=== PATIENT | male | born 1960 | race Caucasian/White ===

== ENCOUNTER 2021-01-14 13:23 | Outpatient (REF) | payer BC, SELFPAY | END 2021-01-14 13:24 | disposition home or self-care (01) | LOC: HO.MANLNP 13:23 | PROVIDERS: PCP Internal Medicine; Visit Provider Physician Assistant | DX: R30.9 Painful micturition, unspecified (principal) | CPT/HCPCS: 87086 ==

== ENCOUNTER 2023-05-05 13:55 | Outpatient (REF) | payer MEDICARE, SELFPAY | END 2023-05-05 13:56 | disposition home or self-care (01) | LOC: HO.MANLDS 13:55 | PROVIDERS: Visit Provider Internal Medicine | DX: R73.01 Impaired fasting glucose (principal) | CPT/HCPCS: 36415; 83036 ==

== ENCOUNTER 2025-03-14 12:04 | Outpatient (REF) | payer MEDICARE, SELFPAY ==
--- OUTSIDE RECORDS SUMMARY | 2025-03-14 12:46 | XMS_ITS | Encounter Summary ---
Author Organization [facility], Address [address] [place] [address] Phone Care Team Providers Care Assembly Room Supervisor Name Role Phone Surinder Cheung DO Primary Care Provider [phone] Encounter Details Date Type Department Care Team (Late st Contact Info) Description 04/28/2023 Documentation Only [facility] [address] [place] [address] Salvador Yung MD [address] [place] [address] 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 [address] documented as of this encounter Visit Diagnoses Not on filedocumented in this encounter Care Teams Assembly Room Supervisor Relationship Specialty Start Date End Date Surinder Cheung DO [address] [facility] [place] [address] PCP - General Internal Medicine 09/08/22 documented as of this encounter
--- OUTSIDE RECORDS SUMMARY | 2025-03-14 12:46 | XMS_ITS | Encounter Summary ---
Author Organization [facility], Address [address] [place] [address] Phone Care Team Providers Care Hall Clerk Name Role Phone Surinder Cheung DO Primary Care Provider [phone] Encounter Details Date Type Department Care Team (Late st Contact Info) Description 04/28/2023 Documentation Only [facility] [address] [place] [address] Salvador Yung MD [address] [place] [address] 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 [address] documented as of this encounter Visit Diagnoses Not on filedocumented in this encounter Care Teams Hall Clerk Relationship Specialty Start Date End Date Surinder Cheung DO [address] [facility] [place] [address] PCP - General Internal Medicine 09/08/22 documented as of this encounter
--- OUTSIDE RECORDS SUMMARY | 2025-03-14 12:46 | XMS_ITS | Data Portability ---
Author Organization [facility] Address [address] [place] [address] Assessment Encounter Date Assessment Date Assessment LastModified by Organization Details LastModified Time 09/20/2023 09/20/2023 [id number] [place] [id number] (CARDIAC TECHNICIAN) : MDM LOW MUST MEET 2 OF 3 ELEMENTS: PROBLEMS, DATA OR RISK ELEMENT 1: PROBLEMS ADDRESSED (LOW): 2 OR MORE SELF-LIMITED OR MINOR PROBLEMS OR 1 STABLE CHRONIC ILLNESS OR 1 ACUTE UNCOMPLICATED ILLNESS OR INJURY ELEMENT 2: DATA TO BE REVISED AND ANALYZED (LOW) MUST MEET 1 OF 2 CATEGORIES: CATEGORY 1. REVIEW OF PRIOR EXTERNAL NOTES/RESULTS, ORDERING OF TEST(S) CATEGORY 2. ASSESSMENT REQUIRING INDEPENDENT HISTORIAN(S) INCLUDE WHO THE HISTORIAN IS AND RELATION TO PT AND WHY PT IS UNABLE TO GIVE COMPLETE HISTORY ELEMENT 3: RISK (LOW) RISK OF COMPLICATIONS AND/OR MORBIDITY OR MORTALITY OF PATIENT MANAGEMENT PROVIDER MUST THOROUGHLY DOCUMENT ALL OF THE ELEMENTS COVERED Not available 09/20/2023 14:26:10 03/22/2024 03/22/2024 [id number] [place] [id number] (CARDIAC TECHNICIAN) MDM MODERATE MUST MEET 2 OUT OF 3 ELEMENTS: PROBLEMS, DATA OR RISK ELEMENT 1: PROBLEMS ADDRESSED 1 OR MORE CHRONIC ILLNESS WITH EXACERBATION OR 2 OR MORE STABLE CHRONIC ILLNESSES OR 1 UNDIAGNOSED NEW PROBLEM OR 1 ACUTE ILLNESS W/SYMPTOMS OR 1 ACUTE COMPLICATED INJURY ELEMENT 2: DATA MUST MEET 1 OF 3 CATEGORIES CATEGORY 1: REVIEW OF PRIOR EXTERNAL NOTES, REVIEW OF RESULTS, ORDERING OF EACH TEST, ASSESSMENT REQUIRING INDEPENDENT HISTORIAN OR CATEGORY 2: INDEPENDENT INTERPRETATION OF TESTS BY ANOTHER PHYSICIAN OR SPECIALIST OR CATEGORY 3: DISCUSSION OF MGT OR TEST INTERPRETATION W/EXTERNAL PHYSICIAN OR SPECIALIST ELEMENT 3: RISK RISK OF COMPLICATIONS AND/OR MORBIDITY OR MORTALITY OF PATIENT MANAGEMENT PROVIDER MUST THOROUGHLY DOCUMENT EACH ELEMENT THAT IS COVERED Not available 03/22/2024 12:23:58 09/20/2024 09/20/2024 [id number] [place] [id number] (CARDIAC TECHNICIAN) MDM HIGH MUST MEET 2 OUT OF 3 ELEMENTS: PROBLEMS, DATA OR RISK ELEMENT 1: PROBLEMS 1 OR MORE CHRONIC ILLNESS W/SEVERE EXACERBATION, PROGRESSION MAY REQUIRE HOSPITAL LEVEL CARE OR 1 ACUTE OR CHRONIC ILLNESS OR INJURY THAT POSES A THREAT TO LIFE OR BODILY FUNCTION ELEMENT 2: DATA: MUST MEET 2 OF 3 CATEGORIES CATEGORY 1 REVIEW OF PRIOR EXTERNAL NOTES REVIEW OF THE RESULTS ORDERING OF EACH TEST ASSESSMENT REQUIRING INDEPENDENT HISTORIAN(S) CATEGORY 2: INDEPENDENT INTERPRETATION OF TESTS BY ANOTHER PROVIDER/SPECIALI ST CATEGORY 3: DISCUSSION OF MGT OR TEST INTERPRETATION W/EXTERNAL PHYSICIAN/SPECIAL IST ELEMENT 3: RISK HIGH RISK OF MORBIDITY FROM ADDITIONAL DIAGNOSTIC TESTING OR TREATMENT PROVIDER MUST THOROUGHLY DOCUMENT EACH ELEMENT THAT IS COVERED PROVIDER MUST THOROUGHLY DOCUMENT EACH ELEMENT THAT IS COVERED Not available 09/20/2024 11:33:06 03/14/2025 03/14/2025 [id number] [place] [id number] (CARDIAC TECHNICIAN) MDM MODERATE MUST MEET 2 OUT OF 3 ELEMENTS: PROBLEMS, DATA OR RISK ELEMENT 1: PROBLEMS ADDRESSED 1 OR MORE CHRONIC ILLNESS WITH EXACERBATION OR 2 OR MORE STABLE CHRONIC ILLNESSES OR 1 UNDIAGNOSED NEW PROBLEM OR 1 ACUTE ILLNESS W/SYMPTOMS OR 1 ACUTE COMPLICATED INJURY ELEMENT 2: DATA MUST MEET 1 OF 3 CATEGORIES CATEGORY 1: REVIEW OF PRIOR EXTERNAL NOTES, REVIEW OF RESULTS, ORDERING OF EACH TEST, ASSESSMENT REQUIRING INDEPENDENT HISTORIAN OR CATEGORY 2: INDEPENDENT INTERPRETATION OF TESTS BY ANOTHER PHYSICIAN OR SPECIALIST OR CATEGORY 3: DISCUSSION OF MGT OR TEST INTERPRETATION W/EXTERNAL PHYSICIAN OR SPECIALIST ELEMENT 3: RISK RISK OF COMPLICATIONS AND/OR MORBIDITY OR MORTALITY OF PATIENT MANAGEMENT PROVIDER MUST THOROUGHLY DOCUMENT EACH ELEMENT THAT IS COVERED Not available 03/14/2025 11:56:08 Plan of Treatment Reminders Order Date Submit Date Provider Last Modified By Organization Details Last Modified Time Details Appointments FOLLOW UP 2024 11:30A M DR HEART Not available Not available Not available FOLLOW UP 2024 11:45A M DR HE[facility] Not available Not available Not available Lab C-reactiv e protein, quantitat amarjit, serum or plasma 2024 025 [facility], [address] [place] [address], [place], [id number], 03/14/2025 12:03:12 CBC 2024 025 [facility], [address] [place] [address], [id number], 03/14/2025 12:03:12 CMP, serum or plasma 2024 025 [facility], [address] [place] [address], [id number], 03/14/2025 12:03:12 ESR (erythroc yte sedimenta tion rate), blood 2024 025 [facility], [address] [place] [address], [id number], 03/14/2025 12:03:12 lyme disease igg+igm, serum, reflex western blot 2024 [facility], [address] [place] [address], [id number], 03/14/2025 12:03:12 babesia microti igg+igm Ab, serum 2024 025 [facility], [address] [place] [address], [id number], 03/14/2025 12:03:12 CMP, serum or plasma 2024 025 [facility], [address] [place] [address], [id number], 03/14/2025 12:01:49 CBC w/ auto diff 2024 025 [facility], [address] [place] [address], [id number], 03/14/2025 12:01:48 hemoglobi n A1c, QN, blood 2024 025 [facility], [address] [place] [address], [id number], 03/14/2025 12:01:48 HbA1c (hemoglob in A1c), blood 2023 024 [facility] [address] [place] [address], [id number], 09/22/2024 16:44:56 CMP, serum or plasma 2023 024 [facility], [address] [place] [address], [id number], 04/06/2024 14:29:56 CBC 2023 024 [facility], [address] [place] [address], [id number], 04/06/2024 13:52:07 PSA, serum or plasma 2023 024 [facility], [address] [place] [address], [id number], 04/06/2024 14:13:29 lipid panel, blood 2023 024 [facility], [address] [place] [address], [id number], 04/06/2024 14:28:18 lyme disease igg+igm, serum, reflex western blot 2023 024 [facility], [address] [place] [address], [id number], 04/07/2024 12:10:22 Referral None recorded. Procedures None recorded. Surgeries None recorded. Imaging None recorded. Medication Orders Ciprodex 0.3 %-0.1 % ear drops,mckayla pension 2023 024 [id number], [address] [place], [address], 03/22/2024 11:48:47 Patient TargetsNo targets recorded. Patient Instructions Encounter Date Encounter Id Patient Instructions Last Modified By Organization Details Last Modified Time 09/20/2023 [id number] atrial fibrillation: care instructions Not available 09/20/2023 14:26:23 03/22/2024 [id number] atrial fibrillation: care instructions Not available 03/22/2024 12:27:54 09/20/2024 [id number] kidney stone: care instructions Not available 09/20/2024 11:28:12 learning about diet for kidney stone prevention Not available 09/20/2024 11:28:12 back care and preventing injuries: care instructions Not available 09/20/2024 11:28:12 getting back to normal after low back pain: care instructions Not available 09/20/2024 11:28:12 learning about relief for back pain Not available 09/20/2024 11:28:12 type 2 diabetes: care instructions Not available 09/20/2024 11:31:05 high blood pressure: care instructions Not available 09/20/2024 11:28:12 learning about high blood pressure Not available 09/20/2024 11:28:12 atrial fibrillation: care instructions Not available 09/20/2024 11:28:12 03/14/2025 [id number] learning about type 2 diabetes Not available 03/14/2025 12:00:16 type 2 diabetes: care instructions Not available 03/14/2025 12:00:16 high blood pressure: care instructions Not available 03/14/2025 12:00:16 learning about high blood pressure Not available 03/14/2025 12:00:16 Reason for Referral None Reported. Results Created Date Observation Date Name Description Value Unit Range Abnormal Flag Note LastModifiedBy Organization Detail LastModifiedTime 10/02/20 24 10/02/2024 CT, abdom en, w/o contr ast No observ ation record ed. [facility] [address] [facility] [address], [place], [address], 03/14/2025 11:53:58 10/02/20 24 10/02/2024 XR, abdom en No observ ation record ed. Not Available 2024 11:53:58 Result Notes None recorded. Problems Name Problem SNOMED Code Status Onset Date Resolution Date Notes Provider Name and Address Organization Details Recorded Time Divertic ulosis of sigmoid colon 979616297 Active 2017 Not Available [facility] 2 19:06:17 Umbilica l hernia 049648893 Active 2017 Not Available [facility] 2 19:06:17 Gastroes ophageal reflux disease 445289477 Active 2018 Not Available [facility] 2 19:06:18 Abdomina l pain 76390863 Active 2018 Not Available [facility] 2 19:06:18 Chronic superfic ial gastriti s 919878770 Active 2018 Not Available [facility] 2 19:06:17 Atrial fibrilla tion 80851338 Active 2020 Not Available [facility] 2 19:06:18 Osteoart hritis of left knee joint 45823556458 9109 Active 2021 Not Available [facility] 2 19:06:18 Essentia l hyperten migel 52063710 Active 2017 Not Available [facility] 2 19:06:17 Kidney stone 25117470 Active 2017 Not Available [facility] 2 19:06:17 Sarcoido sis 38457859 Active 2017 Not Available [facility] 2 19:06:17 Rectal polyp 22285492 Active 2017 carcinom a, removal 2009 Not Available [facility] 2 19:06:18 Adenomat ous polyp of colon 014217848 Active 2017 Not Available [facility] 2 19:06:17 Edema of foot 513174433 Active 2017 Not Available [facility] 2 19:06:18 Acute otitis media 0270174 Active 2023 KEL SMITH [address] [place] [address], [phone], [facility] 4 12:09:09 Impacted cerumen of bilatera l ears 30587288016 21868 Active 2023 KEL SMITH [address] [place] [address], [phone], [facility] 4 12:10:55 Pain of left acromioc lavicula r joint 536484367 Active 2023 [facility], [address] [place] [address], [phone], [facility] 4 12:24:11 Pain of right knee joint 20209322224 4100 Active 2023 [facility] DO [address] [place] [address], [phone], [facility] 4 12:24:29 Low back pain 067914689 Active 2023 [facility] DO [address] [place] [address], [address], [facility] 4 14:32:40 Degenera tion of lumbar interver tebral disc 56687476 Active 2023 KEL SMITH [address] [place] [address], [phone], [facility] 4 16:26:11 Type 2 diabetes mellitus 91678587 Active 2024 [facility] DO [address] [place] [address], [phone], [facility] 5 11:57:25 Pain of left knee joint 76192362198 4107 Active 2024 [facility] DO [address] [place] [address], [phone], [facility] 5 12:00:44 Notes:Some problems listed i n Document: #[id number] could not be added to this patient's chart. Please review this document and add these problems to the patient's chart manually as needed. Problem Notes None recorded. Procedures Surgical History Date Name Laterality Status Provider Name and Address Organization Details Recorded Time 022 Corticosteroid Injection completed [facility], [address] [facility], [place], [address], [facility] 01/12/2022 14:09:05 Imaging Results Imaging Date Name Status LastModified by Organiz ation Details LastModified Time 10/02/2024 CT, abdomen, w/o contrast [facility] [address] [facility] [address], [place], [address], 03/14/2025 11:53:58 10/02/2024 XR, abdomen completed [facility] Information n ot available 03/14/2025 11:53:58 Procedure Notes None recorded. Medical Equipment None Reported. Allergies No known drug allergies Medications Name Sig Start Date Stop Date Status Note LastModified by Organization Details LastModified Time omeprazole dr 40 mg cpdr 01/18 completed Not Available Not Available Not Available omeprazole 20 mg cpdr 12/28 completed Not Available Not Available Not Available omeprazole 40 mg cpdr 01/18 completed Not Available Not Available Not Available diclofenac sodium dr 75 mg tbec 12/28 completed Not Available Not Available Not Available tamsulosin hcl 0.4 mg caps 12/28 completed Not Available Not Available Not Available quinapril hcl 40 mg tabs 01/18 completed Not Available Not Available Not Available cyclobenzap rine 10 mg tablet TAKE 1 TABLET BY MOUTH THREE TIMES A DAY NEEDED FOR 10 DAYS active Not Available Not Available No t Available doxycycline hyclate 100 mg capsule TAKE 1 CAPSULE BY MOUTH TWICE A DAY FOR 14 DAYS 03/02 completed Not Available Not Available Not Available lisinopril 20 mg-hydrochl orothiazide 12.5 mg tablet TAKE 2 TABLETS ONCE DAILY active Not Available Not Available No t Available enalapril maleate 20 mg tablet TAKE 1 TABLET BY MOUTH EVERY DAY DIRECTED active Not Available Not Available No t Available sulfamethox azole 800 mg-trimetho prim 160 mg tablet TAKE 1 TABLET BY MOUTH TWICE A DAY FOR S/P STENT REMOVAL active Not Available Not Available No t Available omeprazole 40 mg capsule,del ayed release TAKE 1 CAPSULE DAILY 30 MINUTES BEFORE MORNING MEAL active Not Available Not Available No t Available tramadol 50 mg tablet TAKE 1 TABLET BY MOUTH EVERY 6 HOURS NEEDED FOR SEVERE PAIN active Not Available Not Available No t Available triamcinolo ne acetonide 0.1 % topical cream APPLY TO AFFECTED AREA TWICE A DAY active Not Available Not Available No t Available quinapril 40 mg tablet TAKE 1 TABLET BY MOUTH EVERY DAY 2021 active Not Available Not Available Not Avai lable ofloxacin 0.3 % ear drops INSTILL 5 DROPS TWICE A DAY TO THE RIGHT EAR FOR 3 DAYS. active Not Available Not Available No t Available tamsulosin 0.4 mg capsule TAKE 1 CAPSULE BY MOUTH EVERYDAY AT BEDTIME 01/14 completed Not Available Not Available Not Available cephalexin 500 mg capsule TAKE 1 CAPSULE (500 MG TOTAL) BY MOUTH 3 (THREE) TIMES A DAY. NEXT DOSE AT 6 PM TODAY active Not Available Not Available No t Available nystatin 100,000 unit/gram topical cream APPLY TO AFFECTED AREA TWICE A DAY active Not Available Not Available No t Available flecainide 100 mg tablet TAKE 1 TABLET TWICE A DAY active Not Available Not Available No t Available omeprazole 20 mg capsule,del ayed release TAKE 1 CAPSULE BY MOUTH EVERY DAY IN THE MORNING 05/14 completed Not Available Not Available Not Available diclofenac sodium 75 mg tablet,tyrone yed release Take 1 tablet twice a day by oral route for 10 days. 09/28 completed Not Available Not Available Not Available halobetasol propionate 0.05 % topical cream APPLY A THIN LAYER TO THE AFFECTED AREA(S) BY TOPICAL ROUTE twice DAILY DO NOT EXCEED 50 GRAMS PER WEEK OR 2 WEEKS DURATION 06/07 completed Not Available Not Available Not Available Pepcid 20 mg tablet Take 1 tablet twice a day by oral route. active Not Available Not Available No t Available oxycodone 5 mg tablet TAKE 1 TABLET BY MOUTH EVERY 6 HOURS NEEDED FOR SEVERE PAIN 01/14 completed Not Available Not Available Not Available ciprofloxac in 0.3 %-dexametha sone 0.1 % ear drops,suspe nsion INSTILL 4 DROPS INTO AFFECTED EAR(S) TWICE A DAY FOR 7 DAYS 03/22 completed Not Available Not Available Not Available metoprolol tartrate 25 mg tablet TAKE 1 TABLET BY MOUTH TWICE A DAY active Not Available Not Available No t Available Eliquis 5 mg tablet TAKE 1 TABLET TWICE A DAY active Not Available Not Available No t Available Vitals Date Recorded Body height Body mass index (BMI) Body weight Heart rate Respiratory rate Oxygen saturation Oxygen saturation in Arterial blood by Pulse oximetry Systolic blood pressure Diastolic blood pressure Provider Name and Address Organization Details Last Updated DateTime 4 175.26 cm 53.8 kg/m2 466132. 98 g 65 /min 18 /min 95 % 95 % 164 mm[Hg] 74 mm[Hg] Eldon Smith [facility] 4 11:48:33 Date Recorded Body height Body mass index (BMI) Body weight Heart rate Oxygen saturation Oxygen saturation in Arterial blood by Pulse oximetry Systolic blood pressure Diastolic blood pressure Provider Name and Address Organization Details Last Updated DateTime 4 175.26 cm 51.2 kg/m2 677642. 55 g 69 /min 97 % 97 % 140 mm[Hg] 80 mm[Hg] Floresita Aleman [facility] 4 11:08:59 Date Recorded Body height Body mass index (BMI) Body weight Heart rate Oxygen saturation Oxygen saturation in Arterial blood by Pulse oximetry Systolic blood pressure Diastolic blood pressure Provider Name and Address Organization Details Last Updated DateTime 5 175.26 cm 51.1 kg/m2 924274. 96 g 66 /min 96 % 96 % 118 mm[Hg] 70 mm[Hg] [facility] 5 11:34:56 Social History Question Answer Notes LastModified by Organizat ion Details LastModified Time Tobacco Smoking Status Never Smoker Not Available [facility] 09/03/2020 03:36:23 What Was The Date Of Your Most Recent Tobacco Screening? 03/14/2025 [email or web address] Information not available 03/14/2025 Sex: Unknown Functional Status Question Answer Note LastModified by Organization D etails LastModified Time Do you or have you ever used any other forms of tobacco or nicotine? No Information not available 09/04/2022 Mental Status None recorded. Family History Nothing Reported. Medical History No medical history recorded. Immunizations Vaccine Type Date Status Note Provider Nam e and Address Organization Details Recorded Time zoster, unspecified formulation 0 completed Not Available [facility] 10/27/2022 19:06:18 zoster, unspecified formulation 0 completed Not Available [facility] 10/27/2022 19:06:18 Tdap 0 completed Not Available [facility] 10/27/2022 19:06:18 COVID-19, mRNA, LNP-S, PF, 30 mcg/0.3 mL dose 1 completed Not Available [facility] 10/27/2022 19:06:18 COVID-19, mRNA, LNP-S, PF, 30 mcg/0.3 mL dose 1 completed Not Available [facility] 10/27/2022 19:06:18 COVID-19, mRNA, LNP-S, PF, 30 mcg/0.3 mL dose 1 completed Not Available [facility] 10/27/2022 19:06:18 Influenza, split virus, quadrivalent, preservative 0 completed Not Available [facility] 10/27/2022 19:06:18 Past Encounters Encounter ID Performer Location Encounter Start Date Encounter Closed Date Diagnosis/Indication Diagnosis SNOMED-CT Code Diagnosis ICD10 Code Diagnosis Note [id number] Sur[facility] Heart [facility] [address] [facility],[place] [address] 05/16/2018 11:45:08 05/16/2018 12:45:06 Essential hypertension 27053607 I10 bp is stable no issues no cp no sob Edema of foot 255931358 R60.0 currently is asymptomat oic and doing well bery activ eand hopeful wioll continue [id number] Sur[facility] Heart DO [facility] [address] [facility] [address] [place] [address] 08/22/2018 11:44:13 08/22/2018 12:32:19 Essential hypertension 13239235 I10 bp is stable no issues no cp no sob Injury of groin 91089460 S39.91XA will try to treat the [place] [id number] [facility] [address] [facility] [address] [place] [address] 09/06/2018 10:15:32 09/06/2018 11:27:14 Right inguinal hernia 528378705 K40.90 Calculus o f kidney and ureter 067314893 N20.2 [id number] [facility] Heart [facility] [address] [facility], [place] [address] 09/28/2018 11:11:18 09/28/2018 12:07:35 Essential hypertension 04930954 I10 bp is stable no issues no cp no sob will continue with his accupril 40 and rechk in 6 mo Kidney stone 46315684 N2 0.0 has evid of bilat kidney stones R>L and these are stable avg 3mm in size has been asymptomat ic Diverticul osis of sigmoid colon 260838687 K57.30 discussion re diet and need for prompt care if conditions change in bowel as discussed Umbilical hernia 6748363 07 K42.9 informed him of small hernia and issues that can arise and when to call [id number] Sur[facility] [address] [facility], it[place] [address] 10/28/2018 13:20:37 10/28/2018 15:09:29 Essential hypertension 19495739 I10 Gastritis 8206346 K29.70 PUD vs gerd vs gastritis unlikely NSAID induced ulcer will r/o h. pylori, then trial omeprazole daily for 30 days then stop and see if sx return of note just had ct of abdomen which was neg for GB or liver abnormalit ies will have breath test before starting omeprazole consider GI if sx do not improve f/u if sx change or worsen go to ER if abdominal discomfort becomes significan tly worse [id number] [facility] DO [facility] [address] [facility], [place] [address] 12/28/2018 10:44:10 12/28/2018 11:32:34 Essential hypertension 76905803 I10 bp is stable no issues no cp no sob will continue with his accupril 40 and rechk in 6 mo Gastroesop hageal reflux disease 973356629 K21.0 [id number] [facility] [address] [facility],[place] [address] 01/18/2019 10:45:36 01/18/2019 12:25:54 Gastroesophageal reflux disease 614743182 K21.0 will cont on his omeprazole at 40mg as he notices it get worse if he tries to stop omep Abdominal pain 59327725 R10.9 will look for activity of ulcerative ds of gastriitis Essential hypertension 99754672 I10 bp is stable no issues no cp no sob will continue with his accupril 40 and rechk in 6 mo [id number] [facility] [address] [facility],[place] [address] 02/17/2019 12:07:31 02/17/2019 14:49:31 Gastro-esophageal reflux disease with esophagitis 604381128 K21.0 will refer to GI ranulfo need a EGD Esophageal dysmotility 074533133 K22.4 same as above [id number] [facility] [address] [facility],[place] [address] 09/01/2019 11:11:07 09/01/2019 12:11:05 Gastroesophageal reflux disease 610191550 K21.0 will cont on his omeprazole at 40mg as he notices it get worse if he tries to stop omep will attempt to change to [address] britton Essential hypertension 79155654 I10 bp is stable no issues no cp no sob will continue with his accupril 40 and rechk in 6 mo Chronic lindsay perficial gastritis 131981093 K29.30 overall no evid of bleeding no melena Edema of foot 257233791 R60.0 currently is asymptomat ic and is doing well very activ and hopeful will continue will call if swelling occurs and not intermitte nt or severity increases etc [id number] Sur[facility] Heart [facility] [address] [facility],[place] [address] 01/19/2020 10:38:07 01/19/2020 11:02:59 Essential hypertension 41898896 I10 bp is stable no issues no cp no sob will continue with his accupril 40 and rechk in 6 mo Gastroesop hageal reflux disease 042256718 K21.0 will cont on his omeprazole at 40mg as he notices it get worse if he tries to stop omep will attempt to change to [address] britton 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 if crem not helpful will have to refer to derm [id number] Sur[facility] Heart [facility] [address] [facility],[place] [facility] [place] [address] 06/07/2020 11:44:44 06/07/2020 12:42:09 Edema of foot 014875104 R60.0 currently is asymptomat ic and is doing well very activ and hopeful will continue will call if swelling occurs and not intermitte nt or severity increases etc Essential hypertension 26309989 I10 bp is sl high but usu stable no issues no cp no sob will continue with his accupril 40 and rechk in 6 mo Gastroesop hageal reflux disease 435850021 K21.0 only having occ breakthrou gh will cont on his omeprazole at 40mg as he notices it get worse if he tries to stop omep will attempt to change to [address] britton [id number] Surinder Heart [facility] Internal Medicine [address] [facility],[place] [address] 07/19/2020 11:29:03 07/19/2020 11:57:58 Adult health examination [id number] Z00.00 doing well reviewed lab in detail no untoward symptoms or signs has no overall issues Active or passive immunization 320638412 Z23 told to get shingrix flu and tdap Essential hypertension 39171168 I10 bp is good at 130/80 will continue with his accupril 40 and rechk in 6 mo Edema of foot 023334178 R60.0 currently is asymptomat ic and is doing well very activ and hopeful will continue will call if swelling occurs and not intermitte nt or severity increases etc Gastroesop hageal reflux disease 376275183 K21.0 only having occ breakthrou gh will cont on his omeprazole at 40mg as he notices it get worse if he tries to stop omep will attempt to change to [address] britton [id number] Surinder Heart [facility] Internal Medicine [address] [facility] [address] [place] [address] 01/14/2021 11:31:55 01/14/2021 13:47:56 Impaired fasting glycemia 079409488 R73.01 will fu with lab results Vitreous f loaters of left eye [id number] 64892 H43.392 will have 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 for fu Urine looks dark 6842808 7 R82.998 urine sample was normal, will fu with culture results Paresthesi a of upper limb 41095929 R20.2 [id number] Surinder Heart [facility] Internal Medicine [address] [facility], [place] [facility] [place] [address] 05/14/2021 10:48:18 05/14/2021 11:58:37 Atypical chest pain 988703793 R07.89 will start work up for cardiopulm processsai d he can't handle a stress test due to the gagging sensation with activity so decline stress test at this timediscus sed with patient when he feels comfortabl e I will order Gastroesop hageal reflux disease 760582627 K21.9 will fu with GI, will send note to his office [id number] Surinder Heart [facility] Internal Medicine [address] [facility] [place] [address] 06/10/2021 13:31:09 06/10/2021 14:59:30 Abdominal pain 61524597 R10.9 stable Atrial fibrillation 4943 6004 I48.91 stable Essential hypertension 75999787 I10 stable Supraventr icular tachycardia 6994100 I47.1 stable [id number] Surinder Heart [facility] Internal Medicine [address] [facility],[place] [address] 08/15/2021 08:56:35 08/15/2021 14:48:51 Edema of foot 956061866 R60.0 currently is asymptomat ic and is doing well very activ and hopeful will continue will call if swelling occurs and not intermitte nt or severity increases etc Atrial fibrillation 4943 6004 I48.91 he seems to be stable while on metoprolol is following cardiol with this Essential hypertension 29695949 I10 bp is good at 130/80 will continue with his accupril 40 and rechk in 6 mo Esophageal dysphagia 408 33691 R13.19 he will be cont on the omeprazole and will be going for an egd next mo looking for poss stricture with dr britton [id number] Surinder Heart [facility] Internal Medicine [address] [facility], it[place] [address] 12/15/2021 14:30:40 12/15/2021 14:59:52 Pain of multiple joints 53966311 M25.571 will fu with testing to r/o lyme or previous COVID as a cause Benign pro static hyperplasia 589904968 N40.0 will recheck PSA Pain in le ft lower limb 138590437 M79.605 will start with XRs of his limbs and knees [id number] Surinder Heart [facility] Internal Medicine [address] [facility], it[place] [address] 01/12/2022 13:47:14 01/12/2022 14:17:19 Atrial fibrillation 95374449 I48.91 he seems to be stable while on metoprolol is following cardiol with this Osteoarthr itis of left knee joint 8897839778 55155 M17.12 rosalind inj well maged [id number] Surinder Heart [facility] Internal Medicine [address] [facility] [place] [address] 03/02/2022 12:16:36 03/02/2022 16:31:57 Atrial fibrillation 64437922 I48.91 he seems to be stable while on metoprolol and eliquis no major issues just had potline monitor andis following cardiol with this Essential hypertension 84721444 I10 bp is good at 130/80 will continue with his accupril 40 and rechk in 6 mo Gastroesop hageal reflux disease 941760735 K21.9 stable on omeprazole Kidney stone 29208155 N2 0.0 has evid of bilat kidney stones R>L and these are stable avg 3mm in size has been asymptomat ic and had an ok visit with urologist who check him every 6 months [id number] Surinder Heart [facility] Internal Medicine [address] [facility], it[place] [address] 09/04/2022 11:34:16 09/04/2022 14:18:23 Atrial fibrillation 68446756 I48.91 he seems to be stable while on metoprolol and eliquis no major issues just had potline monitor andis following cardiol with this had tried Cardiovers ion but not successful Gastroesop hageal reflux disease 591717527 K21.9 stable on omeprazole and feel well Hepatitis C screening 41 2501365 Z11.59 Essential hypertension 66308022 I10 bp is good at 130/80 will continue with his accupril 40 and rechk in 6 mo Edema of foot 449398188 R60.0 currently is asymptomat ic and is doing well very activ and hopeful will continue will call if swelling occurs and not intermitte nt or severity increases etc Chronic lindsay perficial gastritis 143588798 K29.30 overall no evid of bleeding no melena [id number] Surinder Heart [facility] Internal Medicine [address] [facility],[place] [facility] [place] [address] 03/31/2023 11:25:17 03/31/2023 12:25:00 Atrial fibrillation 44328605 I48.91 he seems to be stable while on metoprolol and eliquis no major issues just had potline monitor andis following cardiol with this had tried Cardiovers ion but not successful Gastroesop hageal reflux disease 843888437 K21.9 stable on omeprazole and feel well Essential hypertension 23877411 I10 bp is good at 130/80 will continue with his accupril 40 and rechk in 6 mo Hepatitis C screening 41 3570270 Z11.59 [id number] Sur[facility] Internal Medicine [address] [facility],[place] [facility] [place] [address] 09/20/2023 08:51:50 09/20/2023 14:37:02 Essential hypertension 12075923 I10 bp is good at 130/80 will continue with his accupril 40 and rechk in 6 mo Atrial fibrillation 4943 6004 I48.91 he seems to be stable while on metoprolol and eliquis no major issues just had potline monitor andis following cardiol with this had tried Cardiovers ion but not successful [id number] Surinder Heart DO [facility] [address] [facility] [address] [place],[facility] [place] [address] 11/08/2023 11:56:33 11/08/2023 14:34:27 Acute otitis media 0633101 H65.03 will start on ear drop, bilateral ears Impacted c erumen of bilateral ears 1466614507 684652 H61.23 resolved [id number] Sur[facility] Heart [facility] Internal Medicine [address] [facility], [place] [facility] [place] [address] 03/22/2024 11:42:54 03/22/2024 12:34:03 Depression screening 866321691 Z13.31 neg Pain of le ft acromioclavicular joint 461646923 M25.512 will treat conserv Pain of ri ght knee joint 5795870608 67438 M25.561 feeling better today told if pain recurs we will do a rosalind inj as the one on the left helped Tick bite 54450149 W57.X XXA occured at least 5 days ago Atrial fibrillation 4943 6004 I48.91 he seems to be stable while on metoprolol and eliquis no major issues just had potline monitor andis following cardiol with this had tried Cardiovers ion but not successful Essential hypertension 49056286 I10 bp is good at 130/80 will continue with his accupril 40 and rechk in 6 mo [id number] Surinder Heart, [facility] Internal Medicine [address] [facility], [place] [facility] [place] [address] 09/20/2024 10:58:50 09/20/2024 11:34:31 Atrial fibrillation 29627313 I48.91 he seems to be stable while on metoprolol and eliquis no major issues just had potline monitor andis following cardiol with this had tried Cardiovers ion but not successful Essential hypertension 20882286 I10 bp is good at 130/80 will continue with his accupril 40 and rechk in 6 mo Pain of le ft acromioclavicular joint 431142920 M25.512 will treat conserv Low back pain 485036563 M54.50 discussed in detail Kidney stone 56296718 N2 0.0 has evid of bilat kidney stones R>L and these are stable avg 3mm in size has been asymptomat ic and had an ok visit with urologist who check him every 6 months will be scheduled for lithotrips y Type 2 luis carlos betes mellitus without complication 917878231 E11.9 prob developmen t a1c 6.5 last may discussed at length will order new a1c now [id number] Surinder Heart DO [facility] Internal Medicine [address],[place] [address] 03/14/2025 11:22:02 03/14/2025 12:29:14 Essential hypertension 29589172 I10 bp is good at 130/80 will continue with his accupril 40 and rechk in 6 mo Type 2 luis carlos betes mellitus 72978000 E11.9 prob developmen t a1c 6.5 last may discussed at length will order new a1c now Pain of le ft knee joint 7157678056 57481 M25.562 Health Concerns Section Related Observation LastModified by Organization Detai ls LastModified Time None Recorded Concern Status LastModified by Organization Details LastModified Time None Recorded Advance Directives Directive None Recorded Payers Encounter Date Sequence Insurance Name Policy Number Policy Cordero Covered Member ID Cordero Member ID Guarantor Name 09/20/2023 1 [facility]: MEDICARE PPO BLUE (MEDICARE REPLACEMENT PPO) [id number] Ap P Zaidi [id number] Ap P Zaidi 11/08/2023 1 [facility]: MEDICARE PPO BLUE (MEDICARE REPLACEMENT PPO) [id number] Ap P Zaidi [id number] Ap P Zaidi 03/22/2024 1 [facility]: MEDICARE PPO BLUE (MEDICARE REPLACEMENT PPO) [id number] Ap P Zaidi [id number] Ap P Zaidi 09/20/2024 1 [facility]: MEDICARE PPO BLUE (MEDICARE REPLACEMENT PPO) [id number] Ap P Zaidi [id number] Ap P Zaidi 03/14/2025 1 [facility]: MEDICARE HMO BLUE (MEDICARE REPLACEMENT HMO) [id number] Ap P Zaidi [id number] Pa P Zaidi Notes Date Note Type Note Provider Name and Address Organization Details Recorded Time 3 text/htm l Atrial FibrillationReported bypatient.Associated Symptoms:no chest discomfort; no dyspnea; no decline in exercise capacity; no fatigue; no associated dizziness; no awareness of palpitationCare Management - HypertensionReported bypatient.Self Care:not under emotional stress Severity:symptoms are improving; does not interfere with daily activities Associated Symptoms:no dizziness; no lightheadedness; no chest pain; no shortness of breath; no palpitations; no edema; no calf muscle cramps; no blurred vision; no confusion; no headaches; no fatigue patient is evaluated via tele/video assessment per patient consentduring current pandemic has been doing pretty goodgot covid in early aug feels fine now and says his ears feel block no cp no sobrelates kathleen his lower abdomen from the divertic has been doing oklately all since having a light beer at dinner Surinder Heart DO [address] [place], [address], [facility] Internal Medicine 09/20/2023 14:26:42 4 text/htm l f/u ear irrigation Patient presents today with complaint about ear pain, bilaterally Started on Wednesday/Wednesday of last week, where it worsened, started back when he had COVID-19 in AugustThe pain is in both earsHas been happening for a few months, then progressed to the discomfort he was experiencing last weekThe pain feels like a throbbing acheAccompanying symptoms include mild hearing disturbances and post-nasal dripIt is improved with N/AIt is worsened by pressure changes Pertinent comorbidities include recent COVID-19 infection denies sob, cough, wheezing, chest pain, headaches, bodyaches, fever or chills KEL SMITH [address] [place], [address], [facility] Internal Medicine 11/08/2023 12:16:35 4 text/htm l here for rechk and is doing ok relates that hes injured his left shoulder with strainingalso his right knee is very sore lately Surinder Heart DO [address] [place], [address], [facility] Internal Medicine 03/22/2024 12:29:19 4 text/htm l here for rechk and is doing ok overallhad a prob with a rash on his penis which was treated by the urologist who recc he be checked for DMalso had a back pain which he ended up in ERhas been doing PT and this has helped his back a lot Surinder Heart, DO [address] [facility], [place], [address], [facility] 09/20/2024 11:33:44
--- OUTSIDE RECORDS SUMMARY | 2025-03-14 12:46 | XMS_ITS | Encounter Summary ---
Author Organization [facility], Address [address] [place] [address] Phone Care Team Providers Care House Fellow Name Role Phone Surinder Cheung DO Primary Care Provider [phone] Encounter Details Date Type Department Care Team (Late st Contact Info) Description 04/28/2023 Documentation Only [facility] [address] [place] [address] Salvador Yung MD [address] [place] [address] 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 [address] documented as of this encounter Visit Diagnoses Not on filedocumented in this encounter Care Teams House Fellow Relationship Specialty Start Date End Date Surinder Cheung DO [address] [facility] [place] [address] PCP - General Internal Medicine 09/08/22 documented as of this encounter
--- OUTSIDE RECORDS SUMMARY | 2025-03-14 12:46 | XMS_ITS | Data Portability ---
Author Organization [place] - [facility], Allergy Address [address] [place] [address] Care Team Providers Care Casey Saw Operator Name Role Phone ATUL VICK Primary Care Provider Assessment No assessment recorded. Plan of Treatment Reminders Order Date Submit Date Provider Last Modified By Organization Details Last Modified Time Details Appointments Establish ed 30 2024 01:00P M DIAN Chen MD Not available Not available Not available Lab None recorded. Referral None recorded. Procedures None recorded. Surgeries None recorded. Imaging None recorded. Medication Orders ofloxacin 0.3 % ear drops 2023 024 [facility] #[id number], [address] [place], [address], 04/07/2024 14:14:09 Patient TargetsNo targets recorded. Patient InstructionsNo instructions recorded. Reason for Referral None Reported. Results Created Date Observation Date Name Description Value Unit Range Abnormal Flag Note LastModifiedBy Organization Detail LastModifiedTime 04/07/20 24 audio gram No observ ation record ed. BARCODE Not Available 2023 16:36:04 10/11/20 24 audio gram No observ ation record ed. BARCODE Not Available 2023 11:35:04 Result Notes None recorded. Problems Name Problem SNOMED Code Status Onset Date Resolution Date Notes Provider Name and Address Organization Details Recorded Time Bilateral disorder of Eustachian tubes 3249651216360 107 Active 2023 DIAN Chen MD [address], [address] [place] [address] - [facility] 13:40:04 Chronic serous otitis media of right ear 214620418 Active 2023 DIAN Chen MD [address] [place], [place], [address], [facility] - [facility] [place] 4 13:40:09 Sensorineur al hearing loss 24236618 Active 2023 KARUNA FUCHS AuD [address] [place], [place], [address], [facility] - [facility] [place] 4 13:47:17 Mixed conductive and sensorineur al hearing loss, bilateral 470831904 Active 2023 KARUNA FUCHS, AuD [address] [place], [place], [address], [facility] - [facility] [place] 4 13:48:03 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 7381410997547 5 Active 2023 KARUNA FUCHS AuD 100 [facility],[address], [place], [address], [facility] - [facility] [place] 4 13:48:49 Dysfunction of eustachian tube 07349500 Active 2023 DIAN Chen MD 100 [facility], [place], [address], [facility] - [facility] [place] [facility] 14:13:18 Sensorineur al hearing loss of bilateral ears 033537918 Active 2023 MICHEL COLLINS, AUD 100 [facility] [place], [place], [address], [facility] - [facility] [place] 4 13:29:41 Dysfunction of right eustachian tube 2288164906849 101 Active 2023 DIAN Chen MD 100 [facility] [place], [place], [address], [facility] - [facility] [place] 4 13:39:16 Problem Notes None recorded. Procedures Surgical History Date Name Laterality Status Provider Name and Address Organization Details Recorded Time 4 Comp Audio with Tymps - 31256 & 33890 completed MICHEL COLLINS, AUD 100 [facility] [place],[address], [place], [address], [facility] - [facility] 10/09/2024 13:29:37 4 Comp Audio with Tymps - 41728 & 97425 completed KARUNA FUCHS, AuD 100 [facility] [place],[address], [place], [address], [facility] - [facility] 04/07/2024 13:54:28 4 Myringotomy w/Placement of Tube right completed DIAN HOLLIS MD 100 [facility] [place] [place] [address], [place], [address], [facility] - [facility] 04/07/2024 14:12:46 4 NasalEndoscopy_ DP completed DIAN HOLLIS MD 100 [facility] [place],[address], [address], [facility] 04/07/2024 13:39:58 Imaging Results Imaging Date Name Status LastModified by Organiz ation Details LastModified Time 04/07/2024 audiogram completed BARCODE Information no t available 04/07/2024 16:36:04 10/11/2024 audiogram completed BARCODE Information no t available 10/11/2024 11:35:04 Procedure Notes None recorded. Medical Equipment None Reported. Allergies No known drug allergies Medications Name Sig Start Date Stop Date Status Note LastModified by Organization Details LastModified Time cyclobenzaprin e 10 mg tablet TAKE 1 TABLET BY MOUTH THREE TIMES A DAY NEEDED FOR 10 DAYS active Not Available Not Available No t Available lisinopril 20 mg-hydrochloro thiazide 12.5 mg tablet TAKE 2 TABLETS BY MOUTH EVERY DAY active Not Available Not Available No t Available omeprazole 40 mg capsule,delaye d release TAKE 1 CAPSULE BY MOUTH EVERY DAY 30 MINUTES BEFORE MORNING MEAL active Not Available Not Available No t Available triamcinolone acetonide 0.1 % topical cream APPLY TO AFFECTED AREA TWICE A DAY active Not Available Not Available No t Available ofloxacin 0.3 % ear drops INSTILL 5 DROPS TWICE A DAY TO THE RIGHT EAR FOR 3 DAYS. active Not Available Not Available No t Available cephalexin 500 mg capsule TAKE 1 CAPSULE BY MOUTH TWICE A DAY active Not Available Not Available No t Available nystatin 100,000 unit/gram topical cream APPLY TO AFFECTED AREA TWICE A DAY active Not Available Not Available No t Available flecainide 100 mg tablet TAKE 1 TABLET BY MOUTH TWICE A DAY active Not Available Not Available No t Available ciprofloxacin 0.3 %-dexamethason e 0.1 % ear drops,suspensi on INSTILL 4 DROPS INTO AFFECTED EAR(S) TWICE A DAY FOR 7 DAYS active Not Available Not Available No t Available metoprolol tartrate 25 mg tablet TAKE 1 TABLET BY MOUTH TWICE A DAY active Not Available Not Available No t Available Eliquis 5 mg tablet TAKE 1 TABLET BY MOUTH TWICE A DAY active Not Available Not Available No t Available Vitals Date Recorded Body height Body mass index (BMI) Body weight Provider Name and Address Organization Details Last Updated DateTime 10/09/2024 172.72 cm 50.2 kg/m2 295660.48 g Destinee Prieto [facility] 10/09/2024 13:36:26 Date Recorded Body height Body mass index (BMI) Body weight Provider Name and Address Organization Details Last Updated DateTime 04/07/2024 170.18 cm 54 kg/m2 935927.37 g Destinee Prieto [facility] 04/07/2024 13:33:35 Social History None recorded. Functional Status None recorded. Mental Status None recorded. Family History Nothing Reported. Medical History No medical history recorded. Past Encounters Encounter ID Performer Location Encounter Start Date Encounter Closed Date Diagnosis/Indication Diagnosis SNOMED-CT Code Diagnosis ICD10 Code Diagnosis Note [id number] DIAN HOLLIS MD [facility] on [address] [place] [address] 04/07/2024 12:47:59 04/07/2024 17:11:47 Bilateral disorder of Eustachian tubes 4688086959 680544 H69.93 see below Chronic se airam otitis media of right ear 108448213 H65.21 Had an effusion AD. Nasal endo was normal (no tumors). I sent oflox to used for 3 days. F/u 6 months for a tube check with a HTF. Sensorineu ral hearing loss 27794078 H90.A22 Mixed cond uctive and sensorineural hearing loss of right ear 4014715733 9105 H90.A31 Audiologic al evaluation results:Ri ght ear:{{Norm al Mild Mo derate* Mo derately-s evere Suzy re Profoun d}} {{hearing sloping to a mild slopi ng to a moderate s loping to moderately severe slo ping to severe* sl oping to profound f lat high frequency low frequency mid frequency cookie bite almanzar curve}} {{with sen sorineural hearing loss with condu ctive hearing loss with mixed hearing loss with*}} {{excellen t* good fa ir poor no t measurable }} word recognitio n.Left ear:{{Norm al Mild Mo derate* Mo derately-s evere Suzy re Profoun d}} {{hearing sloping to a mild slopi ng to a moderate s loping to moderately severe slo ping to severe slo ping to profound f lat high frequency* low frequency mid frequency cookie bite almanzar curve}} {{with sen sorineural hearing loss with* cond uctive hearing loss with mixed hearing loss with}} {{excellen t* good fa ir poor no t measurable }} word recognitio n. Tympanomet ry:Right Ear:{{Type A Type As Type Ad Type C Type C, shallow & rounded Ty pe B* Type B with large volume Cou ld not maintain a hermetic seal}}Left Ear:{{Type A* Type As Type Ad Type C Type C, shallow & rounded Ty pe B Type B with large volume Cou ld not maintain a hermetic seal}} Dysfunctio n of eustachian tube 73727338 H69.83 H65.23 H90.0 [id number] DIAN HOLLIS MD [facility] on [address] [place] [address] 10/09/2024 12:55:34 10/09/2024 13:44:46 Dysfunction of right eustachian tube 1804541676 547333 H69.91 TIPP AD. Will recheck in 6 months. Call if hearing gets blocked in the interim. [id number] MALIKA ARAGON [facility] on [address] [place] [address] 10/09/2024 13:29:16 10/10/2024 07:05:21 Sensorineural hearing loss of bilateral ears 223296310 H90.3 Audiologic al evaluation results: 10/09/2024 Right ear: {{Normal* Normal through 2 kHz Mild M oderate Mo derately-s evere Suzy re Profoun d}} {{hearing hearing. s loping to a mild slopi ng to a moderate s loping to moderately severe slo ping to severe slo ping to profound f lat high frequency low frequency mid frequency cookie bite almanzar curve slop ing to a mild to moderate#} } {{with sen sorineural hearing loss with* cond uctive hearing loss with mixed hearing loss with}} {{excellen t* good fa ir poor no measurable }} word recognitio n. Left ear: {{Normal* Normal through 2 kHz Mild M oderate Mo derately-s evere Suzy re Profoun d}} {{hearing hearing. s loping to a mild slopi ng to a moderate s loping to moderately severe slo ping to severe slo ping to profound f lat high frequency low frequency mid frequency cookie bite almanzar curve slop ing to a moderate #}} {{with sen sorineural hearing loss with condu ctive hearing loss with mixed hearing loss with senso rineural hearing loss notch @ 4K Hz with#}} {{excellen t* good fa ir poor no measurable }} word recognitio n. Tympanomet ry: Right Ear:{{Type A Type As Type Ad Type C Type C, shallow & rounded Ty pe B Type B with large volume* Co uld not maintain a hermetic seal}} Left Ear:{{Type A* Type As Type Ad Type C Type C, shallow & rounded Ty pe B Type B with large volume Cou ld not maintain a hermetic seal}} Health Concerns Section Related Observation LastModified by Organization Detai ls LastModified Time None Recorded Concern Status LastModified by Organization Details LastModified Time None Recorded Advance Directives Directive None Recorded Payers Insurance Date Sequence Insurance Name Policy Number Policy Cordero Covered Member ID Cordero Member ID Guarantor Name 10/09/2024 1 [place] (MEDICARE REPLACEMENT PPO) [id number] Ap Zaidi [id number] Ap Zaidi Notes Date Note Type Note Provider Name and Address Organization Details Recorded Time 04/07/2024 text/html He had covid several months back and his ears began feeling blocked. He improved from covid but the ear blockage has remained. No tinnitus. He is having much more difficulty hearing. When he moves his jaw he feels things move around in his ear canal. DIAN HOLLIS MD [address] [place] [address], [address], [place] - [facility] 04/07/2024 14:16:38 10/09/2024 text/html Hx of CSOM AD. Had an MxT in April. Has maintained improved hearing. Audio confirms this today. No current problems with hearing or ear pain. Prior nasal endo negative for tumors. DIAN HOLLIS MD [address] [place] [address],[place] [address], [place], [address], [facility] - [facility] 10/09/2024 13:41:27
--- OUTSIDE RECORDS SUMMARY | 2025-03-14 12:46 | XMS_ITS | Encounter Summary ---
Author Organization [facility], Address [address] [place] [address] Phone Care Team Providers Care Fishing Floats Assembler Name Role Phone Surinder Cheung DO Primary Care Provider [phone] Encounter Details Date Type Department Care Team (Late st Contact Info) Description 04/28/2023 Documentation Only [facility] Victorino SIDDIQI [address] [place] [address] Salvador Yung MD [address] [place] [address] 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 Victorino SIDDIQI [address] [place] [address] Salvador Yung MD [address] [place] [address] [place] [address] documented as of this encounter Visit Diagnoses Not on filedocumented in this encounter Care Teams Fishing Floats Assembler Relationship Specialty Start Date End Date Surinder Cheung DO 6 [facility] [place] [address] PCP - General Internal Medicine 09/08/22 documented as of this encounter
--- OUTSIDE RECORDS SUMMARY | 2025-03-14 12:46 | XMS_ITS | Continuity of Care Document ---
Author Organization [place] - [facility], [facility] Address [address] [facility] [place] [address] Assessment Encounter Date Assessment Date Assessment LastModified by Organization Details LastModified Time 03/14/2025 03/14/2025 [id number] [place] [id number] (MONOTYPIST) MDM MODERATE MUST MEET 2 OUT OF [...] Last Modified Time Details Appointments FOLLOW UP 15 2024 11:30A M DR HEART Not available Not available Not available FOLLOW UP 15 2024 11:45A M DR [facility] Not available Not available Not available Lab C-reactiv e protein, quantitat amarjit, serum or plasma 2024 025 [facility], [address] [place] [address], [id number], 03/14/2025 12:03:12 CBC 2024 025 [facility], [address] [place] [address], [id number], 03/14/2025 12:03:12 CMP, serum or plasma 2024 [facility], [address] [place] [address], [id number], 03/14/2025 12:03:12 ESR (erythroc yte sedimenta tion rate), blood 2024 [facility], [address] [place] [address], [id number], 03/14/2025 12:03:12 lyme disease igg+igm, serum, reflex western blot 2024 [facility], [address] [place] [address], [id number], 03/14/2025 12:03:12 babesia microti igg+igm Ab, serum 2024 [facility], [address] [place] [address], [id number], 03/14/2025 12:03:12 CMP, serum or plasma 2024 [facility], [address] [place] [address], [id number], 03/14/2025 12:01:49 CBC w/ auto diff 2024 [facility], [address] [place] [address], [id number], 03/14/2025 12:01:48 hemoglobi n A1c, QN, blood 2024 [facility], [address] [place] [address], [id number], 03/14/2025 12:01:48 Referral None recorded. Procedures None recorded. Surgeries None recorded. Imaging None recorded. Medication Orders None recorded. Patient TargetsNo targets recorded. Patient Instructions Encounter Date Encounter Id Patient Instructions Last Modified By Organization Details Last Modified Time 03/14/2025 [id number] learning about type 2 diabetes Not available 03/14/2025 12:00:16 type 2 diabetes: care instructions Not available 03/14/2025 12:00:16 high blood pressure: care instructions Not available 03/14/2025 12:00:16 learning about high blood pressure Not available 03/14/2025 12:00:16 Reason for Referral None Reported. Problems Name Problem SNOMED Code Status Onset Date Resolution Date Notes Provider Name and Address Organization Details Recorded Time Divertic ulosis of sigmoid colon 434030397 Active 2017 Not Available [facility] 2 19:06:17 Umbilica l hernia 106449073 Active 2017 Not Available [facility] 2 19:06:17 Gastroes ophageal reflux disease 166993976 Active 2018 Not Available [facility] 2 19:06:18 Abdomina l pain 28760016 Active 2018 Not Available [facility] 2 19:06:18 Chronic superfic ial gastriti s 840721089 Active 2018 Not Available [facility] 2 19:06:17 Atrial fibrilla tion 19780573 Active 2020 Not Available [facility] 2 19:06:18 Osteoart hritis of left knee joint 10979621634 9109 Active 2021 Not Available [facility] 2 19:06:18 Essentia l hyperten migel 73296041 Active 2017 Not Available [facility] 2 19:06:17 Kidney stone 59951239 Active 2017 Not Available [facility] 2 19:06:17 Sarcoido sis 20404665 Active 2017 Not Available [facility] 2 19:06:17 Rectal polyp 46883495 Active 2017 carcinom a, removal 2009 Not Available [facility] 2 19:06:18 Adenomat ous polyp of colon 392099161 Active 2017 Not Available [facility] 2 19:06:17 Edema of foot 716676085 Active 2017 Not Available [facility] 2 19:06:18 Acute otitis media 3264272 Active 2023 KEL SMITH [address] [place] [address], [address], [facility] 4 12:09:09 Impacted cerumen of bilatera l ears 51516837058 77144 Active 2023 KEL SMITH [address] [place] [address], [address], [facility] 4 12:10:55 Pain of left acromioc lavicula r joint 256753163 Active 2023 Surinder Heart DO [address] [place] [address], [address], [facility] 4 12:24:11 Pain of right knee joint 89453372379 4100 Active 2023 Surinder Heart DO [address] [place] [address], [address], [facility] 4 12:24:29 Low back pain 791804529 Active 2023 Surinder Heart DO [address] [place] [address], [address], [facility] 4 14:32:40 Degenera tion of lumbar interver tebral disc 07900262 Active 2023 KEL SMITH [address] [place] [address], [address], [facility] 4 16:26:11 Type 2 diabetes mellitus 90512310 Active 2024 Surinder Heart DO [address] [place] [address], [address], [facility] 5 11:57:25 Pain of left knee joint 07103678166 4107 Active 2024 Surinder Heart DO [address] [place], [address], [facility] 5 12:00:44 Notes:Some problems listed i n Document: #[id number] could not be added to this patient's chart. Please review this document and add these problems to the patient's chart manually as needed. Problem Notes None recorded. Procedures Surgical History Date Name Laterality Status Provider Name and Address Organization Details Recorded Time 022 Corticosteroid Injection completed Surinder Heart DO [address] [place], [address], [facility] 01/12/2022 14:09:05 Imaging Results None recorded. Procedure Notes None recorded. Medical Equipment None [...] Not Available diclofenac sodium dr 75 mg [facility] 12/28 completed Not Available Not Available Not [...] Updated DateTime 5 175.26 cm 51.1 kg/m2 341007. 96 g 66 /min 96 % 96 % 118 mm[Hg] 70 mm[Hg] Flores[facility] 5 11:34:56 Social History Question Answer Notes LastModified by Organizat ion Details LastModified Time Tobacco Smoking Status Never Smoker Not Available [facility] 09/03/2020 03:36:23 What Was The Date Of Your Most Recent Tobacco Screening? 03/14/2025 [email or web address] Information not available 03/14/2025 Sex: Unknown Functional [...] zoster, unspecified formulation 0 completed Not Available [facility] 10/27/2022 19:06:18 zoster, unspecified formulation 0 completed Not Available [facility] 10/27/2022 19:06:18 Tdap 0 completed Not Available [facility] 10/27/2022 19:06:18 COVID-19, mRNA, LNP-S, PF, 30 mcg/0.3 mL dose 1 completed Not Available [facility] 10/27/2022 19:06:18 COVID-19, mRNA, LNP-S, PF, 30 mcg/0.3 mL dose 1 completed Not Available [facility] 10/27/2022 19:06:18 COVID-19, mRNA, LNP-S, PF, 30 mcg/0.3 mL dose 1 completed Not Available [facility] 10/27/2022 19:06:18 Influenza, split virus, quadrivalent, preservative 0 completed Not Available [facility] 10/27/2022 19:06:18 Past Encounters Encounter ID Performer Location Encounter Start Date Encounter Closed Date Diagnosis/Indication Diagnosis SNOMED-CT Code Diagnosis ICD10 Code Diagnosis Note [id number] DO Kami García [facility] [address],Angé[place] [address] 03/14/2025 11:22:02 03/14/2025 12:29:14 Essential hypertension 10775992 I10 bp is good at 130/80 will continue with his accupril 40 and rechk in 6 mo Type 2 luis carlos betes mellitus 54027154 E11.9 prob developmen t a1c 6.5 last may discussed at length will order new a1c now Pain of le ft knee joint 4819753496 21502 M25.562 Health Concerns Section Related Observation LastModified by Organization Detai ls LastModified Time None Recorded Concern Status LastModified by Organization Details LastModified Time None Recorded Payers Encounter Date Sequence Insurance Name Policy Number Policy Cordero Covered Member ID Cordero Member ID Guarantor Name 03/14/2025 1 [facility]: MEDICARE HMO BLUE (MEDICARE REPLACEMENT HMO) [id number] Ap Zaidi [id number] Ap Zaidi
--- OUTSIDE RECORDS SUMMARY | 2025-03-14 12:46 | XMS_ITS | Encounter Summary ---
Author Organization [facility], Address [address] [place] [address] Phone Care Team Providers Care Tanning Wheel Filler Name Role Phone Surinder Cheung DO Primary Care Provider [phone] Encounter Details Date Type Department Care Team (Late st Contact Info) Description 05/20/2023 Documentation Only [facility] Victorino [address] [place] [address] Salvador Yung MD [address] [place] [address] 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 [address] documented as of this encounter Visit Diagnoses Not on filedocumented in this encounter Care Teams Tanning Wheel Filler Relationship Specialty Start Date End Date Surinder Cheung DO [address] [facility] [place] [address] PCP - General Internal Medicine 09/08/22 documented as of this encounter
--- OUTSIDE RECORDS SUMMARY | 2025-03-14 12:46 | XMS_ITS | Clinical Summary ---
Author Organization [facility], Address [address] [place] [address] Phone Care Team Providers Care Vice President Of Talent Acquisition Name Role Phone Surinder Cheung DO Primary Care Provider [phone] Allergies Active Allergy Reactions Criticality Noted Date Comments Other Other (see comments) 09/12/2018 Not medication, has Hay Fever Medications apixaban (Eliquis) 5 MG tablet Take 5 mg by mouth in the morning and 5 mg in the evening. 2 Active famotidine (PEPCID) 20 MG tablet Take 20 mg by mouth in the morning and 20 mg in the evening. Active omeprazole (PriLOSEC) [address] capsule TAKE 1 CAPSULE BY MOUTH EVERY DAY 30 MINUTES BEFORE MORNING MEAL 2 Active Multiple Vitamin (MULTIVITAMIN PO) Take 1 tablet by mouth daily Active flecainide (TAMBOCOR) 100 MG tabletIndications :Atrial fibrillation (HCC) TAKE 1 TABLET BY MOUTH TWICE A DAY 180 tablet 3 4 Active lisinopril-hydroC HLOROthiazide (PRINZIDE,ZESTORE TIC) 20-12.5 MG per tablet Take 2 tablets by mouth 1 (one) time each day 180 tablet 3 5 Active metoprolol tartrate 25 MG tabletIndications :Encounter for issue of repeat prescription TAKE 1 TABLET BY MOUTH TWICE A DAY 180 tablet 2 5 Active Active Problems Problem Noted Date Diagnosed Date Benign essential hypertension 01/25/2018 Renal stone 01/25/2018 Encounters Date Type Department Care Team Description 01/30/2025 Documentation Only [facility] [place] [address] Camille Goldman 01/17/2025 Refill [facility] [address] [place] [address] Salvador Yung MD Encounter for issue of repeat prescription from Last 3 Months Immunizations Immunization Administration Dates Next Due Influenza, Quadrivalent, With Preservative 08/05 Influenza, Recombinant, Quadrivalent, Pf 020 Influenza, Unspecified 08/07/2020 Pfizer SARS-COV-2 09/05/2021,02/13/2021,01/23/20 21 Shingrix 10/17/2020,08/07/2020 Tdap 08/07/2020 Zoster 10/17/2020,08/07/2020 Zoster, Unspecified 10/17/2020,08/07/2020 Family History Medical History Relation Comments Heart attack Father Relation Status Comments Father Social History Tobacco Use Types Packs/Day Years Used Date Smoking Tobacco: Never Tobacco Cessation:Counseling Given: Not Answered Alcohol Use Standard Drinks/Week Comments Yes 2 (1 standard drink = 0.6 oz pur e alcohol) Sex and Gender Information Value Date Recorded Sex Assigned at Not on file Legal Sex Male 2:49 PM EST Gender Identity Not on file Sexual Orientation Not on file 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 [address] Health Maintenance Due Date Last Done Comments Pneumococcal Vaccine: 50+ Years (1 of 2 - PCV) 1977 Colorectal Cancer Screening: Annual FOBT 2007 Colorectal Cancer Screening: Colonoscopy 2007 Colorectal Cancer Screening: Sigmoidoscopy 2007 Diabetes: Hemoglobin A1C 11/28/2024 Diabetes: Ophthalmology Exam 11/28/2024 Diabetes: Pedal Pulse Checked 11/28/2024 Diabetes: Sensory Foot Exam 11/28/2024 Diabetes: Visual Foot Exam 11/28/2024 Influenza Vaccine (Season Ended) 2025 08/07/2020, 08/07/2020, 08/05/2020 Hepatitis B Vaccine Aged Out No longe r eligible based on patient's age to complete this topic Insurance [facility] Care Teams Vice President Of Talent Acquisition Relationship Specialty Start Date End Date Surinder Cheung DO [address] [facility] [place] [phone] PCP - General Internal Medicine 09/08/22
--- OUTSIDE RECORDS SUMMARY | 2025-03-14 12:46 | XMS_ITS | Encounter Summary ---
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 [address] documented as of this encounter Visit Diagnoses Not on filedocumented in this encounter Care Teams Senior Branch Manager Relationship Specialty Start Date End Date Skye DO Surinder [address] [facility] [place] [phone] PCP - General Internal Medicine 09/08/22 documented as of this encounter
--- OUTSIDE RECORDS SUMMARY | 2025-03-14 12:46 | XMS_ITS | Encounter Summary ---
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 [address] documented as of this encounter Visit Diagnoses Not on filedocumented in this encounter Care Teams Staffing Recruiter Relationship Specialty Start Date End Date Skye DO Surinder [address] [facility] [place] [phone] PCP - General Internal Medicine 09/08/22 documented as of this encounter
--- OUTSIDE RECORDS SUMMARY | 2025-03-14 12:47 | XMS_ITS | Encounter Summary ---
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 [address] documented as of this encounter Visit Diagnoses Not on filedocumented in this encounter Care Teams Television Writer Relationship Specialty Start Date End Date Skye DO Surinder [address] [facility] [place] [phone] PCP - General Internal Medicine 09/08/22 documented as of this encounter
--- OUTSIDE RECORDS SUMMARY | 2025-03-14 12:47 | XMS_ITS | Encounter Summary ---
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 [address] documented as of this encounter Visit Diagnoses Not on filedocumented in this encounter Care Teams Cardiology Specialist Relationship Specialty Start Date End Date Skye DO Surinder [address] [facility] [place] [phone] PCP - General Internal Medicine 09/08/22 documented as of this encounter
[2025-03-14 18:08] LABS: MANUAL DIFF FLAG NO
[2025-03-14 18:27] LABS: Basophils Percent Auto 0.7 % (0-2); Eosinophils Absolute Auto 0.2 X10*3/uL (0.0-0.4); Eosinophils Percent Auto 2.5 % (0-4); Hematocrit 41.8 % (42.0-52.0); Hemoglobin 13.9 g/dl (14.0-18.0); Imm Gran Abs Auto 0.01 X10*3/uL (0.00-0.03); Imm Gran Pct Auto 0.2 % (0.0-0.4); Lymphocytes Absolute Auto 1.8 X10*3/uL (1.2-4.9); Lymphocytes Percent Auto 30.1 % (20-40); Mean Corpuscular HGB Conc 33.3 g/dl (31.0-36.0); Mean Corpuscular Volume 99.3 fL (80.0-98.0); Mean Platelet Volume 10.5 fL (9.4-12.4); Monocytes Absolute Auto 0.7 X10*3/uL (0.1-1.2); Monocytes Percent Auto 11.8 % (2-11); Neutrophils Absolute Auto 3.3 x10*3/uL (2.0-8.3); Neutrophils Percent Auto 54.7 % (45-73); Platelet Count 236 X10*3/uL (160-400); Red Blood Count 4.21 X10*6/uL (4.60-5.80); Red Cell Distribution Width 12.8 % (11.0-16.0); White Blood Count 5.9 X10*3/uL (4.8-10.8)
[2025-03-14 18:33] LABS: Estimated Average Glucose 143 mg/dL; Hemoglobin A1C 174.4512 umol/L; Hemoglobin A1c % 6.6 % (<6.0); Total Hemoglobin (HGBA1C) 3563.9077 umol/L
[2025-03-14 18:34] LABS: Alanine Aminotransferase 21 U/L (0-40); Albumin Level 3.9 g/dL (3.5-5.0); Alkaline Phosphatase 44 U/L (39-117); Anion Gap 13 (12-20); Aspartate Amino Transferase 30 U/L (5-37); Bilirubin Total 0.5 mg/dL (0.0-1.0); Blood Urea Nitrogen 19 mg/dL (9-16); C Reactive Protein 0.35 mg/dL (< or = 0.50); Calcium 8.8 mg/dL (8.4-10.2); Carbon Dioxide 26 mmol/L (22-29); Chloride 106 mmol/L (96-108); Estimated Glomerular Filt Rate > 60; Glucose Random 132 mg/dL (60-115); Potassium 3.8 mmol/L (3.3-5.1); Sodium 141 mmol/L (135-145); Total Protein 6.6 g/dL (6.5-8.0)
[2025-03-14 19:09] LABS: Erythrocyte Sedimentation Rate 13 MM/HR (0-15)
[2025-03-15 23:48] LABS: Lyme Blot 3.49 index
[2025-03-16 08:02] LABS: Lyme Abs Screen POSITIVE
[2025-03-16 20:08] LABS: 18 KD (IgG) Band REACTIVE; 23 KD (IgG) Band NON-REACTIVE; 23 KD (IgM) Band NON-REACTIVE; 28 KD (IgG) Band NON-REACTIVE; 30 KD (IgG) Band NON-REACTIVE; 39 KD (IgM) Band NON-REACTIVE; 39KD (IgG) Band REACTIVE; 41 KD (IgM) Band NON-REACTIVE; 41KD (IgG) Band REACTIVE; 45 KD (IgG) Band NON-REACTIVE; 58 KD (IgG) Band REACTIVE; 66 KD (IgG) Band NON-REACTIVE; 93 KD (IgG) Band REACTIVE; Lyme IgG Blot Interp POSITIVE (NEGATIVE); Lyme IgM Blot Interp NEGATIVE (NEGATIVE)
[2025-03-19 17:48] LABS: Babesia IgG <1:64 titer (<1:64); Babesia IgM <1:20 titer (<1:20)
== END 2025-03-14 12:05 | disposition home or self-care (01) ==
LOC: HO.MANLDS 12:04
PROVIDERS: Visit Provider Internal Medicine
DX: E11.9 Type 2 diabetes mellitus without complications (principal); M25.562 Pain in left knee
CPT/HCPCS: 36415; 80053; 83036; 85025; 85652; 86140; 86617; 86618; 86753